=== PATIENT | female | born 1965 | race Caucasian/White ===

== ENCOUNTER → 2017-01-26 | Outpatient (CLI) | payer OTHER ==
[~2017-01-26] MED LIST: AZITHROMYCIN250 MG PO; CEFDINIR300 MG PO; FLEXERIL-DPS10 MG PO; MEDROL DPS4 MG PO; NEURONTIN DPS100 MG PO; NORCO 5-325 TA1 EACH PO; ZOFRAN4 MG PO
== END | disposition home or self-care (01) ==
LOC: PTH.S 10:47
DX: I10 Essential (primary) hypertension (principal)